=== PATIENT | female | born 1965 | race Caucasian/White ===

== ENCOUNTER 2016-12-07 20:09 | Emergency (ER) | payer OTHER ==
[2016-12-07 20:27] VITALS: RESP 16; TEMP 98.1
[2016-12-07] MEDS ORDERED: DIPH,PERTUS(ACELL)TETVAC-LF 0.5 ML VIAL IM ONE (21:01)
--- NOTE | 2016-12-07 21:04 | ED ---
General Adult HPI - General Chief complaint: Animal Bite Stated complaint: dog bite Time Seen by Provider: 12/07/16 20:54 Source: patient, family, RN notes reviewed Mode of arrival: ambulatory Limitations: no limitations - History of Present Illness Initial comments: Chief complaint history of present illness this is a 51-year-old female here for complaint of a dog bite to her right hand. The patient has information on the dog the environmental auditor said that showed IMMUNIZATIONS are up-to-date. The patient does need a tetanus shot. Denies ALLERGIES otherwise. Patient is right-hand dominant. - Related Data Previous Rx's Medication Instructions Recorded Amoxicillin/Potassium Clav 1 each PO Q12HR #20 tab 12/07/16 [Augmentin 875-125 Tablet] Allergies Allergy/AdvReac Type Severity Reaction Status Date / Time No Known Allergies Allergy Verified 12/07/16 20:27 Review of Systems ROS Statement: Those systems with pertinent positive or pertinent negative responses have been documented in the HPI. Review of systems no other problems other than dog bite to her right dominant hand. Abrasions to both forearms. Patient's otherwise denying any other problems. All systems are reviewed. Past medical problems no chronic medical problems surgeries bariatric surgery family history sister breast cancer. Patient denies ALLERGIES she does not smoke. Drinks alcohol socially. ROS Other: All systems not noted in ROS Statement are negative. Past Medical History Past Medical History: No Reported History History of Any Multi-Drug Resistant Organisms: None Reported Past Surgical History: Bariatric Surgery Past Psychological History: No Psychological Hx Reported Smoking Status: Never smoker Past Alcohol Use History: Occasional Past Drug Use History: None Reported General Exam - General Exam Comments Initial Comments: General: The patient is awake and alert, complains of pain to her hand where the dog bit her. Especially over the fourth MCP. This needs to be anesthetized and cleaned and loosely sutured. Vital signs temperature 98.1 pulse 73 respiratory rate 16 pulse ox 99% room air blood pressure 147/84 Eye: Pupils are equal, round and reactive to light, extra-ocular movements are intact ; there is normal conjunctiva bilaterally. No signs of icterus. Ears, nose, mouth and throat: There are moist mucous membranes, patient reports she just recently finished treatment for strep throat. Patient otherwise denying chest pain shortness breath GI/ problems. Musculoskeletal: Examination the hand finds several punctures. There is a L-shaped laceration over the fourth MCP joint dorsal surface. Patient is right-hand dominant. She is able to open close her fingers. No complaint of numbness or tingling. Neurological: No neuro deficits. Limitations: no limitations Course Vital Signs 12/07/16 20:23 Temperature 98.1 F Pulse Rate 73 Respiratory 16 Rate Blood Pressure 147/84 O2 Sat by Pulse 99 Oximetry Procedures - Procedures Initial comment: Procedure; using sterile technique. 1% Xylocaine was used to numb the area over the MCP joint on the dorsal surface of the right hand. The wound was explored no foreign bodies noted. Tendons intact. Was scrubbed well hemostasis obtained. 3 mattress style sutures were placed with good approximation with an pressure applied. Patient was advised to have sutures removed in 10 days. If it appears to be an infection should be removed sooner. Medical Decision Making - Medical Decision Making Medical decision making x-ray of the dominant right hand with the patient had a dog bite was done and reviewed by radiologist and her final impression is there is no acute fracture or dislocation on the right hand as read by Dr. Gupta We discussed possibility of joint and hand infection. The patient was started on Augmentin here in emergency room. We'll given a prescription for the next 10 days. She was advised that a dog bite form has to be filled out. We also discussed possibility of retained foreign body of small puppy teeth that cannot be seen on x-ray a need to be removed surgically to become infected. Patient advised to use Tylenol or ibuprofen for pain ice elevate her hand follow -up with family physician. If she develops infection or inflammation on the one sutured wound on her dorsal surface of her right hand she's had the sutures removed otherwise if it heals without incident sutures can come out in 10 days. Disposition Clinical Impression: Dog bite, Laceration of hand Disposition: HOME SELF-CARE Condition: Stable Instructions: Animal Bite (ED), Laceration (ED) Additional Instructions: Take Augmentin twice daily for the next 10 days. Follow-up with your family physician. Watch closely for signs of infection to year wounds. If the sutured wound looks infected the sutures should be removed then allowed to heal by secondary intention. Prescriptions: Amoxicillin/Potassium Clav [Augmentin 875-125 Tablet] 1 each PO Q12HR #20 tab Referrals: None,Stated [Primary Care Provider] - 1-2 days Time of Disposition: 22:00
[2016-12-07] MEDS ORDERED: AMOXIC-POT CLAV 875MG STARTER 2 EACH TABLET PO STA (21:21)
--- NOTE | 2016-12-07 21:48 | XR ---
EXAMINATION TYPE: XR hand complete RT DATE OF EXAM: 12/07/2016 CLINICAL HISTORY: Dogbite near the second metacarpal TECHNIQUE: Frontal, lateral and oblique images of the right hand are obtained. COMPARISON: None. FINDINGS: There is no acute fracture/dislocation evident in the right hand. The joint spaces in the right hand appear within normal limits. The overlying soft tissue appears unremarkable. IMPRESSION: There is no acute fracture or dislocation in the right hand.
[2016-12-07 22:08] VITALS: BP 115/71; PULSE 65
--- NOTE | 2016-12-10 08:07 | CDI ---
Documentation Clarification OP Dear Dr. Bong Curry Please do addendum to ED report that provides length, material and procedure of laceration repair performed. Thank you, Constantino Vazquez Licensed Master Social Worker If you have any questions, please contact [facility] at [phone] [facility]
== END 2016-12-07 22:07 | disposition home or self-care (01) ==
LOC: EC 20:09
DX: S61.411A Laceration without foreign body of right hand, initial encounter (principal); Z23 Encounter for immunization; W54.0XXA Bitten by dog, initial encounter
CPT/HCPCS: 12001; 90471; 90715; 99283